=== PATIENT | male | born 1955 | race Caucasian/White ===

== ENCOUNTER → 2025-01-12 | Outpatient (CLI) | payer MEDICARE, OTHER | LOC: LAB SHORT 07:52 → LAB 07:52 | DX: D48.5 Neoplasm of uncertain behavior of skin (principal); M17.11 Unilateral primary osteoarthritis, right knee | CPT/HCPCS: 73562-RT; 88305 ==

== ENCOUNTER 2025-05-17 07:15 | Day surgery (SDC) | payer MEDICARE, OTHER ==
[~2025-05-17] VITALS: Ht 165.1 cm; Wt 84.8 kg
[2025-05-17] VITALS (11 sets, daily range): BP systolic 118–163; BP diastolic 22–103
[~2025-05-17 07:15] MED LIST: CeFAZolin Sodium 2,000 MG in NS 100 ML IV SCH; Chlorhexidine Mouth Care 15 ML UDC MT SCH; Ropivacaine 0.5% HCl/Pf 123.125 MG,EPINEPHrine HCL 0.25 MG,Ketorolac Tromethamine 15 MG... INFIL SCH; Tranexamic Acid 100 ML IV SCH
--- NOTE | 2025-05-17 07:52 | NUR ---
IV STARTED BY [facility] [place] [facility] [employer] STUDENT
[2025-05-17] MEDS ORDERED: FentaNYL Citrate 50 MCG/ML 2 ML Injection ONE ×2 (08:01→10:59)
[2025-05-17] MEDS ORDERED: Bupivacaine 0.5% HCl 5 MG/ML 30MLVIAL ONE (08:05)
--- NOTE | 2025-05-17 08:16 | NUR ---
History, Chart, Medications and Allergies reviewed before start of procedure. Pre-Op teaching done. Pt verbalizes understanding. Patient confirms NPO status and agrees with scheduled surgery.
[2025-05-17] MEDS ORDERED: Ondansetron HCl 2 MG / ML 2ML Vial IV PRN ×2 (08:55→10:10)
[2025-05-17] MEDS ORDERED: FLU VACC TS2025-26(6MOS UP)/PF 45 MCG/0.5 ML SYRINGE IM SCH (09:00)
[2025-05-17] MEDS ORDERED: HYDROmorphone HCl/Pf 1MG SYR IV PRN ×2 (09:00→10:15)
[2025-05-17] MEDS ORDERED: Magnesium Hydroxide Conc 10 ML UDC PO PRN (09:00)
[2025-05-17] MEDS ORDERED: Metoclopramide HCl 5MG / ML 2ML Vial IV PRN ×2 (09:00→10:15)
[2025-05-17] MEDS ORDERED: Dexamethasone Sod Phos 10 MG/ML 1ML VIAL ONE (09:48)
[2025-05-17] MEDS ORDERED: Ondansetron HCl 2 MG / ML 2ML Vial ONE (09:48)
[2025-05-17] MEDS ORDERED: ePHEDrine Sulfate 50 MG/ML 1ML Injection ONE (09:55)
[2025-05-17] MEDS ORDERED: FentaNYL Citrate 50 MCG/ML 2 ML Injection IV PRN ×3 (10:10→10:15)
[2025-05-17] MEDS ORDERED: Ketorolac Tromethamine 15mg Vial IV SCH (12:00)
--- NOTE | 2025-05-17 12:30 | NUR ---
ASSUMED CARE OF PT @1200 AXO4. VSS. ON RA. FEELING TO LEGS DISTAL TO HIPS DULLED - UNABLE TO MOVE FEET/WIGGLE TOES AT THIS POINT. FLUIDS INFUSING - TXA TO BE ADMINISTERED @1250. MEDICATED PER EMAR WITH TORADOL SCHEDULED. TOLERATING PO INTAKE CURRENTLY. CAP REFILL <3 SEC TO TOES.
[2025-05-17] MEDS ORDERED: ACET500 PO (13:39)
[2025-05-17] MEDS ORDERED: ASPI81CH PO (13:40)
[2025-05-17] MEDS ORDERED: DOCU100 PO (13:41)
[2025-05-17] MEDS ORDERED: OXYC5 PO (13:41)
--- NOTE | 2025-05-17 15:20 | NUR ---
DISCHARGE PT HAS WORKED w/ THERAPY. PAIN WELL CONTROLLED. EATING, DRINKING, & VOIDED. POLAR PACK SENT w/ PT. ESCORTED OUT VIA W/C.
[2025-05-17] MEDS ORDERED: CeFAZolin Sodium 2,000 MG in NS 100 ML IV SCH (16:00)
== END 2025-05-17 15:20 | disposition home or self-care (01) ==
LOC: ORSCMMR 07:15 → ORD 08:30 → SURS 11:56 → ORSCMMR 15:20
PROVIDERS: Orthopaedic Surgery
PROC: 0SRC0JA Replacement of Right Knee Joint with Synthetic Substitute, Uncemented, Open Approach (ICD-10-PCS; principal; 2025-05-17 08:30)
PROC: 8E0Y0CZ Robotic Assisted Procedure of Lower Extremity, Open Approach (ICD-10-PCS; principal; 2025-05-17 08:30)
DX: M17.11 Unilateral primary osteoarthritis, right knee (principal); J45.909 Unspecified asthma, uncomplicated; F17.210 Nicotine dependence, cigarettes, uncomplicated; Z85.46 Personal history of malignant neoplasm of prostate
CPT/HCPCS: 27447; 0055T; 73560-RT; 97116; 97161; A9270; C1713; C1776; J0166; J0690; J0735; J1100; J1885; J2405; J2704; J2795; J3010; J7120

== ENCOUNTER 2025-05-24 12:40 | Emergency (ER) | payer MEDICARE, OTHER ==
[~2025-05-24] VITALS: Ht 170.2 cm; Wt 77.1 kg
[~2025-05-24 12:40] MED LIST changes: +ACET500 PO; +ASPI81CH PO; -CeFAZolin Sodium 2,000 MG in NS 100 ML IV SCH; -Chlorhexidine Mouth Care 15 ML UDC MT SCH; +DOCU100 PO; +OXYC5 PO; -Ropivacaine 0.5% HCl/Pf 123.125 MG,EPINEPHrine HCL 0.25 MG,Ketorolac Tromethamine 15 MG... INFIL SCH; -Tranexamic Acid 100 ML IV SCH
[2025-05-24 13:19] LABS: BASOPHILS ABSOLUTE AUTO 0.09 K/mm3 (0.00-0.23); BASOPHILS PERCENT AUTO 1 % (0-2); EOSINOPHILS ABSOLUTE AUTO 0.11 K/mm3 (0.00-0.68); EOSINOPHILS PERCENT AUTO 1 % (0-6); Hematocrit 39.0 % (37.0-53.0); Hemoglobin 12.8 g/dL (13.5-17.5); IMMATURE GRAN ABSOLUTE AUTO 0.21 K/mm3 (0.00-0.10); IMMATURE GRAN PERCENT AUTO 2 % (0-1); LYMPHOCYTES ABSOLUTE AUTO 2.10 K/mm3 (0.84-5.20); LYMPHOCYTES PERCENT AUTO 20 % (21-46); MONOCYTES ABSOLUTE AUTO 1.17 K/mm3 (0.16-1.47); MONOCYTES PERCENT AUTO 11 % (4-13); Mean Corpuscular HGB Conc 32.8 g/dL (31.5-36.5); Mean Corpuscular Volume 94 fL (80-100); NEUTROPHILS ABSOLUTE AUTO 7.07 K/mm3 (1.96-9.15); NEUTROPHILS PERCENT AUTO 66 % (41-73); NRBC ABSOLUTE 0.00 K/mm3 (0.00-0.02); NRBC Auto 0.0 /100 WBC (0.0-0.2); Platelet Count 388 K/mm3 (150-400); RDW Coefficient Variation 13.2 % (11.7-14.2); RDW Standard Deviation 44.9 fL (35.1-46.3)
[2025-05-24 13:45] LABS: Alanine Aminotransfer (ALT/SGP 37.0 U/L (12-78); Albumin, Blood 3.3 g/dL (3.4-5.0); Albumin/Globulin Ratio 0.8 (0.8-1.8); Anion Gap 8.0 mmol/L (3-11); Aspartate Aminotrans (AST/SGOT 22.0 U/L (12-37); Bilirubin, Total 1.0 mg/dL (0.1-1.0); Blood Urea Nitrogen 21.0 mg/dL (8-24); CO2, Blood 25.0 mmol/L (21-32); Calcium, Blood 9.0 mg/dL (8.5-10.1); Chloride, Blood 106.0 mmol/L (98-108); Creatinine, Blood 1.07 mg/dL (0.60-1.20); Globulin, Blood 4.2 g/dL (2.2-4.0); Glucose, Blood 106.0 mg/dL (70-99); Potassium, Blood 4.6 mmol/L (3.5-5.5); Sodium, Blood 134.0 mmol/L (136-145); Total Protein, Blood 7.5 g/dL (6.4-8.2)
== END 2025-05-24 18:40 | disposition home or self-care (01) ==
LOC: ER 12:40
PROVIDERS: Emergency Medicine
DX: M96.89 Other intraoperative and postprocedural complications and disorders of the musculoskeletal system (principal); G89.18 Other acute postprocedural pain; Z96.651 Presence of right artificial knee joint
CPT/HCPCS: 73562-RT; 80053; 85025; 85651; 86140; 93971; 99284-25; A9270